=== PATIENT | female | born 1940 | race American Indian/Alaskan Native ===

== ENCOUNTER → 2019-02-27 08:59 | Outpatient (CLI) | payer OTHER | END | disposition home or self-care (01) | LOC: EKG 08:59 → LAB 08:59 | DX: I10 Essential (primary) hypertension (principal) ==

== ENCOUNTER → 2019-02-27 | Outpatient (CLI) | payer OTHER | END | disposition home or self-care (01) | LOC: RAD 08:07 | DX: R07.89 Other chest pain (principal); Z01.818 Encounter for other preprocedural examination ==

== ENCOUNTER 2022-05-26 11:48 | Outpatient (CLI) | payer OTHER | END 2022-05-26 11:58 | disposition home or self-care (01) | LOC: RAD 11:48 | PROVIDERS: ATTEND Orthopaedic Surgery | DX: R07.9 Chest pain, unspecified (principal) ==